=== PATIENT | female | born 1930 | race African-American/Black ===

== ENCOUNTER 2017-02-27 08:14 | Observation (INO) | payer MEDICARE, OTHER ==
[~2017-02-27] VITALS: Ht 152.4 cm; Wt 52.2 kg
[~2017-02-27 08:14] MED LIST: ATORVASTATIN; HCTZ; KEPPRA; LEVOTHYROXIN; LIPITOR; METOPROLOL; neurontin
[2017-02-27] MEDS ORDERED: SODIUM CHLORIDE 0.9% 500 ML IV ONE (09:13)
[2017-02-27] MEDS ORDERED: LEVETIRACETAM 500MG PREMIX 100 ML IV ONE (09:15)
[2017-02-27] MEDS ORDERED: HYDRALAZINE 20MG/ML VIAL IV ONE (09:30)
[2017-02-27 09:38] LABS: HEMATOCRIT. 26.6 % (36.0-48.0); HEMOGLOBIN. 8.6 g/dL (12.0-16.0); MEAN CORPUSCULAR HEMOGLOBIN 27.4 pg (28.0-32.0); MEAN CORPUSCULAR VOLUME 85.3 fL (81.0-99.0); PLATELET 369 x1000/uL (130-400); RED BLOOD CELL COUNT 3.12 mill/uL (4.2-5.4); RED CELL DISTRIBUTION WIDTH 17.1 % (11.6-14.6)
[2017-02-27 09:47] LABS: INR 1.1; PARTIAL THROMBOPLASTIN TIME 27.8 sec (23.4-31.0); PROTHROMBIN TIME 11.5 sec (9.4-11.6)
[2017-02-27 10:01] LABS: CARBON DIOXIDE 29 mEq/L (21-32); CHLORIDE 105 mEq/L (98-107); TROPONIN I < 0.02 ng/mL (0.00-0.04)
[2017-02-27 10:54] LABS: PLATELET ESTIMATE NORMAL
[2017-02-27] MEDS ORDERED: ASPIRIN 81MG TABLET PO ONE (11:30)
[2017-02-27] MEDS ORDERED: TRAZ-129 PO (15:26)
[2017-02-27 15:30] VITALS: BP 197/73
[2017-02-27 16:07] VITALS: BP 197/73
[2017-02-27] MEDS ORDERED: CLONIDINE 0.1MG TABLET PO PRN (17:30)
[2017-02-27] MEDS: ASPIRIN 81MG TABLET PO SCH (18:15)
[2017-02-27] MEDS: AMLODIPINE 5MG TABLET PO SCH (18:16)
[2017-02-27 20:00] VITALS: BP 157/59
[2017-02-27] MEDS: LEVETIRACETAM 500MG TABLET PO SCH (21:25)
[2017-02-27] MEDS: LOSARTAN POTASSIUM 50 MG TABLET PO SCH (21:25)
[2017-02-27] MEDS: PANTOPRAZOLE 40MG DR TABLET PO SCH (21:26)
[2017-02-27] MEDS: METOPROLOL TARTRATE 50MG TABLET PO SCH (21:26)
[2017-02-28 00:03] VITALS: BP 132/60
[2017-02-28 04:00] VITALS: BP 155/55
[2017-02-28 06:53] LABS: HEMATOCRIT. 26.3 % (36.0-48.0); HEMOGLOBIN. 8.4 g/dL (12.0-16.0); MEAN CORPUSCULAR HEMOGLOBIN 27.2 pg (28.0-32.0); MEAN CORPUSCULAR VOLUME 85.4 fL (81.0-99.0); MEAN PLATELET VOLUME 7.6 fl (7.4-10.4); PLATELET 360 x1000/uL (130-400); RED BLOOD CELL COUNT 3.08 mill/uL (4.2-5.4); RED CELL DISTRIBUTION WIDTH 17.5 % (11.6-14.6)
[2017-02-28 07:52] VITALS: BP 127/64
[2017-02-28] MEDS: ASPIRIN 81MG TABLET PO SCH (09:28)
[2017-02-28] MEDS: METOPROLOL TARTRATE 50MG TABLET PO SCH (09:28)
[2017-02-28] MEDS: LOSARTAN POTASSIUM 50 MG TABLET PO SCH (09:28)
[2017-02-28] MEDS: PANTOPRAZOLE 40MG DR TABLET PO SCH (09:29)
[2017-02-28] MEDS: AMLODIPINE 5MG TABLET PO SCH (09:29)
[2017-02-28] MEDS: LEVETIRACETAM 500MG TABLET PO SCH (09:29)
[2017-02-28 10:07] LABS: TOTAL IRON BINDING CAPACITY 292 ug/dL (250-450)
[2017-02-28 12:03] LABS: VITAMIN B12 SERUM 231 pg/mL (211-911)
[2017-02-28 12:08] VITALS: BP 157/44
[2017-02-28] MEDS ORDERED: IOHEXOL-300 100 ML BOTTLE ONE (12:59)
[2017-02-28 15:56] VITALS: BP 177/73
[2017-02-28 17:12] VITALS: BP 157/44
[2017-02-28 17:35] LABS: PLATELET ESTIMATE NORMAL
== END 2017-02-28 17:45 | disposition home or self-care (01) ==
LOC: ER 08:24 → INTOOBSV 12:24 → 6WST 12:24 → EDBEDREQ 12:28 → ENRESERV 13:01
PROVIDERS: ADMIT Internal Medicine; ATTEND Internal Medicine
DX: R55 Syncope and collapse (principal); J44.9 Chronic obstructive pulmonary disease, unspecified; D64.9 Anemia, unspecified; K57.90 Diverticulosis of intestine, part unspecified, without perforation or abscess without bleeding; K80.20 Calculus of gallbladder without cholecystitis without obstruction; Z87.891 Personal history of nicotine dependence; Z86.73 Personal history of transient ischemic attack (TIA), and cerebral infarction without residual deficits; G40.909 Epilepsy, unspecified, not intractable, without status epilepticus; R90.82 White matter disease, unspecified; Z79.899 Other long term (current) drug therapy
CPT/HCPCS: 36415; 70450; 71010; 74177; 80053; 82553; 82607; 83540; 83550; 83880; 84484; 85025; 85610; 85730; 93005; 93306; 93880; 96361; 96365; 96375; 99285; G0378; J0360; J1953; J7040; Q9967

== ENCOUNTER 2017-03-14 15:32 | Observation (INO) | payer MEDICARE ==
[~2017-03-14] VITALS: Ht 144.8 cm; Wt 56.7 kg
[~2017-03-14 15:32] MED LIST changes: +TRAZ-129 PO
[2017-03-14 16:54] LABS: BASOPHILS % 1.1 % (0.0-2.0); CHLORIDE 104 mEq/L (98-107); EOSINOPHILS % 1.9 % (0.0-5.0); HEMATOCRIT. 28.5 % (36.0-48.0); LYMPHOCYTES % 14.3 % (20.0-50.0); MEAN CORPUSCULAR HEMOGLOBIN 26.7 pg (28.0-32.0); MEAN CORPUSCULAR VOLUME 85.1 fL (81.0-99.0); MEAN PLATELET VOLUME 7.3 fl (7.4-10.4); MONOCYTES % 11.9 % (2.0-8.0); NEUTROPHILS % 70.8 % (40.0-76.0); PLATELET 280 x1000/uL (130-400); RED BLOOD CELL COUNT 3.35 mill/uL (4.2-5.4); RED CELL DISTRIBUTION WIDTH 17.8 % (11.6-14.6)
[2017-03-14 16:55] LABS: INR 1.1; PROTHROMBIN TIME 11.5 sec (9.4-11.6)
[2017-03-14 16:59] LABS: CARBON DIOXIDE 28 mEq/L (21-32)
[2017-03-14 17:04] LABS: TROPONIN I < 0.02 ng/mL (0.00-0.04)
[2017-03-14] MEDS ORDERED: HYDRALAZINE 20MG/ML VIAL IV ONE (20:15)
[2017-03-15] VITALS (7 sets, daily range): BP systolic 131–204; BP diastolic 49–66
[2017-03-15] MEDS ORDERED: ACETAMINOPHEN 325MG TABLET PO PRN (02:00)
[2017-03-15] MEDS ORDERED: TEMAZEPAM 15MG CAPSULE PO PRN (02:00)
[2017-03-15] MEDS: CLONIDINE 0.1MG TABLET PO PRN ×2 (02:45→16:37)
[2017-03-15 06:20] LABS: BASOPHILS % 1.2 % (0.0-2.0); EOSINOPHILS % 2.7 % (0.0-5.0); HEMATOCRIT. 26.7 % (36.0-48.0); HEMOGLOBIN. 8.5 g/dL (12.0-16.0); LYMPHOCYTES % 24.7 % (20.0-50.0); MEAN CORPUSCULAR HEMOGLOBIN 27.3 pg (28.0-32.0); MEAN CORPUSCULAR VOLUME 85.4 fL (81.0-99.0); MEAN PLATELET VOLUME 8.2 fl (7.4-10.4); NEUTROPHILS % 58.4 % (40.0-76.0); PLATELET 249 x1000/uL (130-400); RED BLOOD CELL COUNT 3.13 mill/uL (4.2-5.4); RED CELL DISTRIBUTION WIDTH 17.6 % (11.6-14.6)
[2017-03-15] MEDS ORDERED: AMLODIPINE 5MG TABLET PO SCH (09:00)
[2017-03-15] MEDS ORDERED: PANTOPRAZOLE SODIUM 40 MG/VIAL IV SCH (09:00)
[2017-03-15] MEDS ORDERED: LOSARTAN POTASSIUM 50 MG TABLET PO SCH ×2 (09:00→19:30)
[2017-03-15] MEDS ORDERED: [UNRECOGNIZED DRUG - OTHER] (14:17)
[2017-03-15] MEDS ORDERED: ASPI-1159 PO (14:19)
[2017-03-15] MEDS ORDERED: LORAZEPAM 1MG TABLET PO PRN (19:00)
[2017-03-15] MEDS: HALOPERIDOL LACTATE 5MG/ML VIAL IM PRN ×2 (19:32→19:46)
[2017-03-15] MEDS ORDERED: LEVETIRACETAM 500MG TABLET PO SCH ×2 (21:00)
== END 2017-03-15 20:47 | disposition left against medical advice (07) ==
LOC: ER 15:48 → 5WST 21:12 → INTOOBSV 21:12 → ENRESERV 21:50
PROVIDERS: ADMIT Internal Medicine; ATTEND Internal Medicine
DX: R55 Syncope and collapse (principal); I44.7 Left bundle-branch block, unspecified; D64.9 Anemia, unspecified; E03.9 Hypothyroidism, unspecified; E78.5 Hyperlipidemia, unspecified; J44.9 Chronic obstructive pulmonary disease, unspecified; F17.200 Nicotine dependence, unspecified, uncomplicated; M48.02 Spinal stenosis, cervical region; M12.9 Arthropathy, unspecified; I11.0 Hypertensive heart disease with heart failure; I50.9 Heart failure, unspecified; S09.90XA Unspecified injury of head, initial encounter; X58.XXXA Exposure to other specified factors, initial encounter; Z86.73 Personal history of transient ischemic attack (TIA), and cerebral infarction without residual deficits; Y93.89 Activity, other specified; Y92.89 Other specified places as the place of occurrence of the external cause; Y99.8 Other external cause status
CPT/HCPCS: 36415; 70450; 71010; 72125; 80048; 80053; 80061; 83880; 84484; 85025; 85610; 93005; 96374; 96375; 99285; C9113; G0378; J0360; J1630